=== PATIENT | male | born 1960 | race Caucasian/White ===

== ENCOUNTER 2016-06-29 06:19 | Day surgery (SDC) | payer OTHER ==
[~2016-06-29 06:19] MED LIST: IV START KIT ONE; LACTATED RINGERS 1,000 ML ONE
[2016-06-29] MEDS ORDERED: LIDOCAINE 2% (PRES FREE) 5 ML VIAL ONE (07:01)
[2016-06-29] MEDS ORDERED: PROPOFOL 40 ML IV ONE (07:01)
[2016-06-29] MEDS ORDERED: LACTATED RINGERS 1,000 ML IV SCH (07:45)
== END 2016-06-29 08:10 | disposition home or self-care (01) ==
LOC: SDC 06:19
PROVIDERS: ATTEND Surgery
PROC: 0DJD8ZZ Inspection of Lower Intestinal Tract, Via Natural or Artificial Opening Endoscopic (ICD-10-PCS; principal; 2016-06-29)
DX: Z12.11 Encounter for screening for malignant neoplasm of colon (principal); K57.30 Diverticulosis of large intestine without perforation or abscess without bleeding; E11.9 Type 2 diabetes mellitus without complications; E78.2 Mixed hyperlipidemia; Z79.82 Long term (current) use of aspirin; Z79.4 Long term (current) use of insulin; Z79.84 Long term (current) use of oral hypoglycemic drugs; Z87.891 Personal history of nicotine dependence
CPT/HCPCS: 45378; J7120